=== PATIENT | male | born 2000 | race Caucasian/White ===

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

== ENCOUNTER 2018-11-10 15:27 | Emergency (ER) | payer MEDICAID, OTHER ==
[2018-11-10 16:13] VITALS: BP 131/68
--- NOTE | 2018-11-10 17:20 | UC ---
General HPI - HPI Summary HPI Summary: PT C/O DRAINAGE FROM HIS EARS WHILE ASLEEP. HE DESCRIBES IT A YELLOWISH - ORANGE. HE ALSO NOTES PULSATING PAIN IN EACH EARS IF HE LYES ON THEM. NO URI, ALLERGIES OR FEVER. ONSET FOR BOTH WAS ABOUT 2 WEEKS AGO. - History of Current Complaint Chief Complaint: UCEar Stated Complaint: BILATERAL EAR PAIN Time Seen by Provider: 11/10/18 17:08 Hx Obtained From: Patient Pain Intensity: 0 Associated Signs & Symptoms: Negative: Fever, Headache - Allergy/Home Medications Allergies/Adverse Reactions: Allergies Allergy/AdvReac Type Severity Reaction Status Date / Time lactose Allergy GI Upset Verified 11/10/18 16:10 Home Medications: Home Medications Acetaminophen [Tylenol Extra Strength] 1,000 mg PO ONCE PRN 11/10/18 [History Confirmed 11/10/18] Melatonin [Meladox] 3 mg PO ONCE PRN 11/10/18 [History Confirmed 11/10/18] PMH/Surg Hx/FS Hx/Imm Hx Previously Healthy: Yes - Surgical History Surgical History: None - Family History Known Family History: Positive: None - Social History Occupation: Student Alcohol Use: Weekly Alcohol Amount: three times weekly Substance Use Type: None Smoking Status (MU): Light Every Day Tobacco Smoker Type: eCigarettes - Immunization History Most Recent Influenza Vaccination: 2016 Most Recent Tetanus Shot: UTD Most Recent Pneumonia Vaccination: NONE Vaccination Up to Date: Yes Review of Systems All Other Systems Reviewed And Are Negative: Yes ENT: Positive: Ear Ache Physical Exam Triage Information Reviewed: Yes Appearance: Well-Appearing Vital Signs: Initial Vital Signs Temp 98.6 F 11/10/18 16:05 Pulse 72 11/10/18 16:05 Resp 16 11/10/18 16:05 BP 131/68 11/10/18 16:05 Pulse Ox 98 11/10/18 16:05 Vital Signs Reviewed: Yes Eyes: Positive: Conjunctiva Clear ENT: Positive: Pharynx normal, TMs normal - Canals show scant yellow material but no active drainage. R canal pain on speculum exam. No auricualr adenopathy or mastoid tenderness.. Negative: Nasal congestion, Nasal drainage Neck: Positive: Supple, Nontender, No Lymphadenopathy Respiratory: Positive: Lungs clear Cardiovascular: Positive: RRR Abdomen Description: Positive: Nontender Musculoskeletal: Positive: ROM Intact Neurological: Positive: Alert Psychological: Positive: Age Appropriate Behavior Skin Exam: Normal Skin: Negative: Rashes Course/Dx - Differential Dx - Multi-Symptom Differential Diagnoses: Other - will cover for OE give the hx of acute drainage x 2 weeks plus R canal tenderness and pt to take decongestant for possible eustachian tube dysfunction. will refer to ent. - Diagnoses Provider Diagnosis: Otalgia of both ears, Otitis externa Discharge - Sign-Out/Discharge Documenting (check all that apply): Patient Departure All imaging exams completed and their final reports reviewed: No Studies - Discharge Plan Condition: Stable Disposition: HOME Prescriptions: Neomyc/Polym/HC 1% OTIC SUSP* [Cortisporin Otic Susp 1%*] 4 drop BOTH EARS TID 7 Days #1 btl Patient Education Materials: Otitis Externa (ED), Earache (ED) Referrals: Marlon Marshall MD [Medical Doctor] - 7 Days Additional Instructions: ASK TO BE SEEN IN THE [facility] OFFICE. - Billing Disposition and Condition Condition: STABLE Disposition: Home
== END 2018-11-10 17:32 | disposition home or self-care (01) ==
LOC: UCCORT 15:27
DX: H92.03 Otalgia, bilateral (principal); H60.93 Unspecified otitis externa, bilateral; F17.290 Nicotine dependence, other tobacco product, uncomplicated
CPT/HCPCS: 99212; G0463